=== PATIENT | male | born 1940 | race Caucasian/White ===

== ENCOUNTER → 2017-10-11 | Outpatient (CLI) | payer OTHER ==
[~2017-10-11] MED LIST: LIDOCAINE 1% 300 MG/30 ML SDV ONE
[2017-10-13 10:19] LABS: FINAL DIAGNOSIS See Comments; MICROSCOPIC DESCRIPTION See Comments
== END ==
LOC: FIMAGING 12:20
PROVIDERS: ATTEND Internal Medicine Hematology & Oncology
PROC: 07BJ3ZX Excision of Left Inguinal Lymphatic, Percutaneous Approach, Diagnostic (ICD-10-PCS; principal; 2017-10-11)
DX: C91.10 Chronic lymphocytic leukemia of B-cell type not having achieved remission (principal); R59.0 Localized enlarged lymph nodes
CPT/HCPCS: 88184-90; 88185-91

== ENCOUNTER 2017-10-29 08:42 | Day surgery (SDC) | payer OTHER ==
[2017-10-29] MEDS ORDERED: ceFAZolin 2 GM/SWFI 2 GM/20 ML SYR IVP ONE (09:10)
[2017-10-29 09:27] VITALS: PULSE 65
[2017-10-29] MEDS ORDERED: LR 1,000 ML IV ONE (09:27)
--- NOTE | 2017-10-29 11:03 | PDHPUP ---
History & Physical Update H&P update statement: This history and physical update is based on an assessment of the patient which was completed after admission or registration (within 24 hours), but prior to the surgery/procedure. H&P update: H&P reviewed & patient examined, no change in patient's condition since H&P completed
[2017-10-29] MEDS ORDERED: ROCURONIUM 50 MG/5 ML VIAL ONE (11:40)
[2017-10-29] MEDS ORDERED: MIDAZOLAM 2 MG/2 ML VIAL ONE (11:40)
[2017-10-29] MEDS ORDERED: fentaNYL 250 MCG/5 ML INJ ONE (11:40)
[2017-10-29] MEDS ORDERED: PROPOFOL/EMULSION 500 MG/50 ML BOTTLE IV ONE (11:40)
[2017-10-29] MEDS ORDERED: LIDOCAINE 2% 5 ML SDV ONE (11:43)
[2017-10-29] MEDS ORDERED: PROPOFOL 200 MG/20 ML VIAL ONE (11:43)
[2017-10-29] MEDS ORDERED: BUPIVACAINE 0.5% 30 ML SDV ONE (12:12)
--- NOTE | 2017-10-29 12:50 | PDANEPAE ---
ANE History of Present Illness 77 year old male for insertion of power port ANE Past Medical History - Cardiovascular History Hx Hypertension: Yes Hx Arrhythmias: No Hx Chest Pain: No Hx Coronary Artery / Peripheral Vascular Disease: Yes Hx CHF / Valvular Disease: No Hx Palpitations: No Cardiovascular History Comment: cad with stents x2 most. IN X 2. LBBB. hyperlipidemia. ascending aorta dilation. cardiomyopathy - Pulmonary History Hx COPD: No Hx Asthma/Reactive Airway Disease: No Hx Recent Upper Respiratory Infection: No Hx Oxygen in Use at Home: No Hx Sleep Apnea: Yes Sleep Apnea Screening Result - Last Documented: Positive Pulmonary History Comment: calvin positive- refuses treatment - Neurologic History Hx Cerebrovascular Accident: No Hx Seizures: No Hx Dementia: No - Endocrine History Hx Diabetes: Yes Endocrine History Comment: type 2 - Renal History Hx Renal Disorders: Yes Renal History Comment: renal insufficiency - Liver History Hx Hepatic Disorders: No - Neurological & Psychiatric Hx Hx Neurological and Psychiatric Disorders: No - Cancer History Hx Cancer: Yes Cancer History Comment: CLL will be starting chemo. MELANOMA SKIN. george- osvaldo syndrome - Congenital Disorder History Hx Congenital Disorders: No - GI History Hx Gastrointestinal Disorders: Yes Gastrointestinal History Comment: HEARTBURN - Other Health History Other Health History: MISSING TEETH. wears glasses - Chronic Pain History Chronic Pain: No - Surgical History Prior Surgeries: 11/22/15 right axillary lymph nodes resection, lateral hand and ring finger biopsies with Abdirizak. REMVL BASAL CELL LT ARM WITH RECONSTRUCTION 05/2014. RT ACL. PREV MOHS FOR MELANOMA. SHLDR ANE Review of Systems Review of Systems: - Exercise capacity METS (RN): 3 METS ANE Patient History - Allergies Allergies/Adverse Reactions: No Known Allergies Allergy (Verified 10/28/17 11:23) - Home Medications Home Medications: Lisinopril [Zestril 5 mg (RX)] 07/08/13 [Last Taken 10/26/17] Nebivolol HCl [Bystolic 5 mg (RX)] 07/08/13 [Last Taken 10/26/17] Prasugrel HCl [Effient 10mg (RX)] 07/08/13 [Last Taken 10/24/17] Rosuvastatin Calcium [Crestor] 07/08/13 [Last Taken 10/26/17] Aspirin 81mg (*) 10/28/17 [Last Taken 10/24/17] Herbals/Supplements -Info Only 10/28/17 [Last Taken 10/26/17] Januvia 50 mg 10/28/17 [Last Taken 10/26/17] Lisinopril 10/28/17 [Last Taken 10/26/17] Zegerid 20 mg Packet 10/28/17 [Last Taken 10/26/17] - NPO status NPO Since - Liquids (Date): 10/28/17 NPO Since - Liquids (Time): 22:00 NPO Since - Solids (Date): 10/28/17 NPO Since - Solids (Time): 22:00 - Smoking Hx Smoking Status: Former smoker - Family Anes Hx Family Hx Anesthesia Complications: none ANE Labs/Vital Signs - Vital Signs Blood Pressure: 128/76 Heart Rate: 65 Respiratory Rate: 14 O2 Sat (%): 94 Height: 179.8 cm Weight: 79.6 kg ANE Physical Exam - Airway Mallampati Score: Class 1 ANE Anesthesia Plan Anesthesia Plan: MAC
--- NOTE | 2017-10-29 12:50 | POSTANESTH ---
Post Anesthetic Evaluation Respiratory Status: Normal, Stable Level of Consciousness/Mental Status: Can Participate in Eval Pain Control: Adequate, Prn Tx Ordered Nausea/Vomiting Control: Adequate, Prn Tx Ordered Complications Possibly Related to Anesthesia: None Noted
--- NOTE | 2017-10-29 12:55 | POSTOPPROG ---
Post Op Note Date of Operation: 10/29/17 Surgeon: Scarlet Reveles Anesthesiologist: imtiaz Anesthesia: IV Sedation Pre-op Diagnosis: leukemia Post-op Diagnosis: same Indication: 77 yo requires port for treatement Procedure: R subclavian port Inf/Abcess present in the surg proc area at time of surgery?: No EBL: Minimal
[2017-10-29 13:22] VITALS: TEMP 97.7
[2017-10-29 13:52] VITALS: RESP 16; O2SAT 92
[2017-10-29 13:53] VITALS: BP 102/63
--- NOTE | 2017-10-30 12:57 | GOP ---
[f rep st] OPERATIVE REPORT DATE OF OPERATION: 10/29/2017 SURGEON: Scarlet Reveles MD ANESTHESIOLOGIST: Russ Dempsey MD, monitored anesthesia care with IV sedation. PREOPERATIVE DIAGNOSIS: Leukemia. POSTOPERATIVE DIAGNOSIS: Leukemia. PROCEDURE PERFORMED: Right subclavian PowerPort placement. FINDINGS: Tip at the cavoatrial junction. SPECIMENS: None. ESTIMATED BLOOD LOSS: 10 cc. INDICATIONS: Ignacio Marina is a 77-year-old who will require treatment for his CLL. Port was indica modesta. DESCRIPTION OF PROCEDURE: Patient was brought into the operating room, placed supine on the table, a nd monitored anesthesia care with IV sedation was performed. His bilateral neck and chest were prepp ed and draped in the usual sterile fashion. He was placed in the Trendelenburg position. I infiltra modesta his right chest with 0.5% Marcaine. I accessed his right subclavian vein with the first attempt with dark return of blood flow. I threaded the guidewire and removed the needle. I created a pocket to accommodate the port in the right chest. I tunneled this up to the insertion site. The wire was in the IVC. I cut the catheter to size under fluoroscopy. Using the Seldinger technique, I placed a dilator and sheath over the wire. I removed the wire and the dilator. The catheter was placed thr ough the sheath and the sheath was peeled away. Placement was confirmed with fluoroscopy. The port withdrew blood easily and was flushed with heparin. The pocket was closed with 3-0 Vicryl followed b y 4-0 Monocryl. Dermabond applied. He was awakened in the operating room and transferred to PACU in stable condition. A chest x-ray showed no pneumothorax and port in good position. /[id number]/MODL
== END 2017-10-29 14:04 | disposition home or self-care (01) ==
LOC: FSGY 08:42
PROVIDERS: ATTEND Surgery
DX: C91.10 Chronic lymphocytic leukemia of B-cell type not having achieved remission (principal); R59.0 Localized enlarged lymph nodes; I25.10 Atherosclerotic heart disease of native coronary artery without angina pectoris; E11.9 Type 2 diabetes mellitus without complications; E78.5 Hyperlipidemia, unspecified; I10 Essential (primary) hypertension; I25.2 Old myocardial infarction; Z79.82 Long term (current) use of aspirin; Z87.891 Personal history of nicotine dependence; Z95.5 Presence of coronary angioplasty implant and graft
CPT/HCPCS: C1788; J0690; J1642; J2250; J2704; J3010